=== PATIENT | male | born 1965 | race Caucasian/White ===

== ENCOUNTER 2019-01-31 12:00 | Emergency (ER) | payer BC ==
[~2019-01-31] VITALS: Ht 170.2 cm; Wt 72.6 kg
[2019-01-31 12:09] VITALS: Ht 170.2 cm; Wt 72.6 kg
[2019-01-31 14:02] VITALS: BP 158/91
== END 2019-01-31 14:02 | disposition home or self-care (01) ==
LOC: ED 12:00
DX: S92.315A Nondisplaced fracture of first metatarsal bone, left foot, initial encounter for closed fracture (principal); W01.0XXA Fall on same level from slipping, tripping and stumbling without subsequent striking against object, initial encounter; Y93.89 Activity, other specified; Y92.89 Other specified places as the place of occurrence of the external cause; Y99.8 Other external cause status

== ENCOUNTER 2019-02-13 18:53 | Emergency (ER) | payer BC ==
[~2019-02-13] VITALS: Ht 170.2 cm; Wt 71.2 kg
[2019-02-13 18:58] VITALS: Ht 170.2 cm; Wt 71.2 kg
[2019-02-13 22:33] VITALS: BP 125/90
== END 2019-02-13 22:33 | disposition home or self-care (01) ==
LOC: ED 18:53
DX: S82.301A Unspecified fracture of lower end of right tibia, initial encounter for closed fracture (principal); S83.91XA Sprain of unspecified site of right knee, initial encounter; X58.XXXA Exposure to other specified factors, initial encounter; Y93.89 Activity, other specified; Y92.89 Other specified places as the place of occurrence of the external cause; Y99.8 Other external cause status
CPT/HCPCS: J1885; Q0092

== ENCOUNTER 2019-02-25 14:56 | Emergency (ER) | payer MEDICAID ==
[~2019-02-25] VITALS: Ht 170.2 cm; Wt 71.2 kg
[2019-02-25 15:19] VITALS: Ht 170.2 cm; Wt 71.2 kg
[2019-02-25 19:01] VITALS: BP 144/98
== END 2019-02-25 19:01 | disposition home or self-care (01) ==
LOC: ED 14:56
DX: M54.42 Lumbago with sciatica, left side (principal); M54.41 Lumbago with sciatica, right side; E11.9 Type 2 diabetes mellitus without complications; Z90.49 Acquired absence of other specified parts of digestive tract; Z95.1 Presence of aortocoronary bypass graft; Z98.890 Other specified postprocedural states
CPT/HCPCS: J1885

== ENCOUNTER 2019-03-19 14:32 | Emergency (ER) | payer MEDICAID ==
[~2019-03-19] VITALS: Ht 170.2 cm; Wt 72.6 kg
[2019-03-19 14:40] VITALS: Ht 170.2 cm; Wt 72.6 kg
[2019-03-19 20:09] LABS: PLATELET COUNT 241 x10^3mcL (130-400); RED CELL DISTRIBUTION WIDTH 12.7 % (11.5-14.5)
[2019-03-19 20:24] LABS: CALCIUM 9.3 mg/dL (8.5-10.1); CARBON DIOXIDE 35.8 mmol/L (21-32); CHLORIDE SERUM 98 mmol/L (98-107); CREATININE SERUM 0.7 mg/dL (0.7-1.3); GFR1 > 60 mL/min; GLUCOSE SERUM 291 mg/dL (74-106); SODIUM SERUM 138 mmol/L (136-145)
[2019-03-19 20:28] LABS: ALBUMIN 3.8 g/dL (3.4-5.0); ALKALINE PHOSPHATASE 166 U/L (46-116); ALT/SGPT 27 U/L (16-63); AST/SGOT 6 U/L (15-37); BILIRUBIN TOTAL 0.5 mg/dL (0.20-1.00); TOTAL PROTEIN, SERUM 8.1 g/dL (6.4-8.2)
[2019-03-19 21:07] LABS: BAND NEUTROPHIL 0 % (0-10); BASOPHIL 0 % (0-2); MONOCYTE 8 % (0-7); PLATELET MORPHOLOGY PLATELETS NORMAL; SEGMENTED NEUTROPHILS 65 % (37-75); rbc morphology (normal/abnorm) NORMAL (NORMAL)
[2019-03-19 22:11] VITALS: BP 147/91
== END 2019-03-19 21:30 | disposition home or self-care (01) ==
LOC: ED 14:32
PROVIDERS: Emergency Medicine
DX: I80.01 Phlebitis and thrombophlebitis of superficial vessels of right lower extremity (principal); E11.65 Type 2 diabetes mellitus with hyperglycemia; Z90.49 Acquired absence of other specified parts of digestive tract
CPT/HCPCS: Q0092; Q0162